=== PATIENT | female | born 1950 | race Caucasian/White ===

== ENCOUNTER 2020-09-10 13:24 | Emergency (ER) | payer MEDICARE, OTHER ==
--- NOTE | 2020-09-10 14:26 | ED Physician Documentation ---
History of Present Illness - Stated complaint Stated Complaint: SWOLLEN LEGS - Chief complaint Chief Complaint: General - History obtained from History obtained from: Patient - History of Present Illness Timing: How many weeks ago (several weeks) Pain level max: 8 Pain level now: 6 - Additonal information Additional information: 70-year-old female states that she has had swelling in her bilateral extremities for "years". She states that since she moved from [place] a few days ago the swelling seems to be worse. She states that her sister told her to come into the emergency department to ensure that she did not have "gangrene". Patient has no fevers. No chills. No redness in the legs. She states she does have a blister on her left great toe. She is unsure how long this has been there. Patient states she does not take any medications other than Ativan for sleep but she has been on for about 20 years. She states that she does not have a doctor here yet and she does not have any refills of her Ativan left. She states that she does drink alcohol daily "2-3 drinks and then may be some wine at night". Not on any hormone replacement. Review of Systems Ten Systems: 10 systems reviewed and negative Constitutional: denies: Fever, Chills Nose: denies: Rhinorrhea / runny nose, Congestion Cardiac: denies: Chest pain / pressure, Palpitations Respiratory: denies: Dyspnea, Cough GI: denies: Abdominal Pain, Vomiting, Diarrhea Skin: denies: Rash Musculoskeletal: denies: Neck pain, Back pain Neurologic: denies: Headache PD PAST MEDICAL HISTORY - Past Medical History Past Medical History: Yes Other Past Medical History: "insomnia" - Present Medications Home Medications: Ambulatory Orders Medication Instructions Recorded Confirmed Furosemide [Lasix] 20 mg PO DAILY #10 tablet 09/10/20 LORazepam [Ativan] 1.5 mg PO DAILY PM 09/10/20 09/10/20 cephALEXin [Keflex] 500 mg PO Q6H #40 cap 09/10/20 - Allergies Allergies/Adverse Reactions: Allergies Allergy/AdvReac Type Severity Reaction Status Date / Time No Known Drug Allergies Allergy Verified 09/10/20 13:40 - Living Situation Living Arrangement: reports: At home - Social History Does the pt smoke?: Yes Smoking Status: Current every day smoker Does the pt drink ETOH?: Yes ETOH Use: Wine, Liquor - Family History Family history: reports: Non contributory PD ED PE NORMAL - Vitals Vital signs reviewed: Yes - General General: Alert and oriented X 3, No acute distress - HEENT HEENT: Moist mucous membranes - Neck Neck: Supple, no meningeal sign - Cardiac Cardiac: RRR, Strong equal pulses - Respiratory Respiratory: No respiratory distress, Clear bilaterally - Abdomen Abdomen: Soft, Non tender, Non distended - Back Back: No spinal TTP - Derm Derm: Warm and dry - Extremities Extremities: Other (2+ BLE pitting edema. no drainage. small open blister with mild erythema to the medial aspect of the MTP. no drainage. ) - Neuro Neuro: Alert and oriented X 3 - Psych Psych: Normal mood, Normal affect Results - Vitals Vitals: Vital Signs - 24 hr 09/10/20 09/10/20 13:34 15:44 Temperature 36.4 C L Heart Rate 94 89 Respiratory 20 20 Rate Blood Pressure 160/102 H 164/100 H O2 Saturation 97 97 Oxygen O2 Source Room air - Labs Labs: Laboratory Tests 09/10/20 09/10/20 09/10/20 14:44 14:44 14:44 WBC 6.5 RBC 4.51 Hgb 15.6 Hct 48.0 H MCV 106.4 H MCH 34.6 H MCHC 32.5 RDW 14.6 Plt Count 240 MPV 10.8 Neut # (Auto) 4.5 Lymph # (Auto) 1.4 L [place] # (Auto) 0.6 Eos # (Auto) 0.0 Baso # (Auto) 0.0 Absolute Nucleated RBC 0.00 Nucleated RBC % 0.0 PT 11.5 INR 1.0 Sodium 139 Potassium 3.7 Chloride 101 Carbon Dioxide 28 Anion Gap 10.0 BUN 9 Creatinine 0.6 Estimated GFR (MDRD) 98 Glucose 86 Calcium 8.8 Total Bilirubin 0.8 AST 30 ALT 21 Alkaline Phosphatase 37 L B-Natriuretic Peptide Total Protein 7.2 Albumin 4.0 Globulin 3.2 Albumin/Globulin Ratio 1.3 Ethyl Alcohol 14.3 09/10/20 14:44 WBC RBC Hgb Hct MCV MCH MCHC RDW Plt Count MPV Neut # (Auto) Lymph # (Auto) [place] # (Auto) Eos # (Auto) Baso # (Auto) Absolute Nucleated RBC Nucleated RBC % PT INR Sodium Potassium Chloride Carbon Dioxide Anion Gap BUN Creatinine Estimated GFR (MDRD) Glucose Calcium Total Bilirubin AST ALT Alkaline Phosphatase B-Natriuretic Peptide 78 Total Protein Albumin Globulin Albumin/Globulin Ratio Ethyl Alcohol PD MEDICAL DECISION MAKING - ED course Complexity details: reviewed results, re-evaluated patient, considered differential, d/w patient ED course: No evidence of DVT. Appears to be peripheral edema. No evidence of significant renal or liver disease. We will place on Lasix. We will also place on Keflex for mild cellulitis. Recommend that she follow-up closely with her doctor to ensure healing of the wound on the left MTP of the great toe. Warnings of infection and instructions on wound care given at bedside. Also counseled on how to minimize scarring. Patient counseled regarding signs and symptoms for which I believe and urgent re-evaluation would be necessary. Patient with good understanding of and agreement to plan and is comfortable going home at this time This document was made in part using voice recognition software. While efforts are made to proofread this document, sound alike and grammatical errors may occur. Departure - Departure Disposition: 01 Home, Self Care Clinical Impression: Peripheral edema Cellulitis Qualifiers: Site of cellulitis: extremity Site of cellulitis of extremity: lower extremity Laterality: unspecified laterality Qualified Code(s): L03.119 - Cellulitis of unspecified part of limb Condition: Good Instructions: ED Infec Skin Cellulitis, ED Edema Legs Bilateral Follow-Up: [facility] [Provider Group] [facility] [Provider Group] [facility] [Provider Group] Cornelia Wagner MD [Provider Admit Priv/Credential] - Prescriptions: cephALEXin [Keflex] 500 mg PO Q6H #40 cap Furosemide [Lasix] 20 mg PO DAILY #10 tablet Comments: Take the Lasix as prescribed. Add the Keflex for any infection in your foot. Return if you worsen. Elevate your feet whenever possible. You need to follow- up with your primary care provider on the [place] as soon as possible. I have listed several of these for you today. Keep the wound clean. This document was made in part using voice recognition software. While efforts are made to proofread this document, sound alike and grammatical errors may occur. Discharge Date/Time: 09/10/20 16:08
[2020-09-10 15:01] LABS: BASOPHILS % (AUTO) 0.5 %; EOSINOPHILS % (AUTO) 0.5 %; HGB - HEMOGLOBIN 15.6 g/dL (12.0-16.0); LYMPHOCYTES # (AUTO) 1.4 10^3/uL (1.5-3.5); LYMPHOCYTES % (AUTO) 21.2 %; MEAN CORPUSCULAR HEMOGLOBIN 34.6 pg (27.0-31.0); MEAN CORPUSCULAR HGB CONC 32.5 g/dL (32.0-36.0); MEAN CORPUSCULAR VOLUME 106.4 fL (81.0-99.0); MEAN PLATELET VOLUME 10.8 fL (7.9-10.8); MONOCYTES # (AUTO) 0.6 10^3/uL (0.0-1.0); MONOCYTES % (AUTO) 8.5 %; NEUTROPHILS # (AUTO) 4.5 10^3/uL (1.5-6.6); NEUTROPHILS % (AUTO) 69.1 %; PLT - PLATELET COUNT 240 10^3/uL (130-450); RED BLOOD COUNT 4.51 10^6/uL (4.20-5.40); RED CELL DISTRIBUTION WIDTH 14.6 % (12.0-15.0); WHITE BLOOD COUNT 6.5 x10^3/uL (4.8-10.8)
[2020-09-10 15:06] LABS: PT - PROTHROMBIN TIME 11.5 secs (9.9-12.6)
[2020-09-10 15:14] LABS: ALBUMIN/GLOBULIN RATIO 1.3 (1.0-2.2); BILIRUBIN,TOTAL 0.8 mg/dL (0.2-1.0); CALCIUM 8.8 mg/dL (8.5-10.3); CREATININE 0.6 mg/dL (0.4-1.0); ETOH - ETHANOL 14.3 mg/dL; POTASSIUM 3.7 mmol/L (3.5-5.0); TOTAL PROTEIN 7.2 g/dL (6.7-8.2)
[2020-09-10] MEDS ORDERED: FUROSEMIDE 20 MG TABLET PO STA (15:16)
[2020-09-10] MEDS ORDERED: cephALEXin 250 MG CAPSULE PO STA (15:16)
[2020-09-10] MEDS ORDERED: FUROSEMIDE 40 MG TABLET PO STA (15:19)
[2020-09-10 15:45] VITALS: BP 164/100
== END 2020-09-10 16:08 | disposition home or self-care (01) ==
LOC: ED 13:24
DX: R60.0 Localized edema (principal); L03.116 Cellulitis of left lower limb; S90.422A Blister (nonthermal), left great toe, initial encounter; X58.XXXA Exposure to other specified factors, initial encounter; F17.200 Nicotine dependence, unspecified, uncomplicated
CPT/HCPCS: 80053; 83880; 85025; 85610; 99283; 99284; A9270; G0480; 80320

== ENCOUNTER 2021-01-11 14:23 | Outpatient (CLI) | payer MEDICARE, OTHER ==
--- NOTE | 2021-01-11 16:58 | Ultrasound Report ---
PROCEDURE: Duplex Ext Veins Bilateral INDICATIONS: ARIAS FLY TECHNIQUE: Real-time imaging, as well as color and pulse Doppler interrogation, were performed of the deep veins of both legs from the inguinal ligament to the popliteal fossa. COMPARISON: None FINDINGS: The deep veins are normally compressible, and free of intraluminal thrombus. Color and pu lse Doppler demonstrate normal phasic intravascular flow. There is normal augmentation response to d istal compression maneuver. IMPRESSION: Negative bilateral duplex lower extremity ultrasound for DVT. Reviewed by: Louis Rush MD on 01/11/2021 4:56 PM PDT Approved by: Louis Rush MD on 01/11/2021 4:56 PM PDT Station ID: [id number]
== END 2021-01-11 14:24 | disposition home or self-care (01) ==
LOC: DI 14:23
PROVIDERS: ATTEND Nurse Practitioner Family
DX: I87.2 Venous insufficiency (chronic) (peripheral) (principal)
CPT/HCPCS: 93970

== ENCOUNTER 2021-06-19 10:21 | Outpatient (CLI) | payer MEDICARE, OTHER ==
--- NOTE | 2021-06-19 16:26 | XRAY Report ---
PROCEDURE: Knee 3 View BILAT INDICATIONS: BILAT KNEE PAIN TECHNIQUE: 3 views of the bilateral knee(s) were acquired. COMPARISON: None. FINDINGS: Bones: No fractures or dislocations. No suspicious bony lesions. There is moderate bilateral media l as well as patellofemoral compartment narrowing. There is minimal lateral compartment narrowing freida aterally. Prominent periarticular osteophytes are present more severe on the left. No definitive eros ions. Soft tissues: Mild bilateral joint effusion. No suspicious soft tissue calcifications. IMPRESSION: Tricompartmental narrowing bilaterally slightly more prominent on the left as above cons istent with arthritis. Reviewed by: La Fuchs MD on 06/19/2021 4:25 PM PST Approved by: La Fuchs MD on 06/19/2021 4:25 PM [facility] Station ID: [id number]
== END 2021-06-19 10:22 | disposition home or self-care (01) ==
LOC: DI.S 10:21
PROVIDERS: ATTEND Nurse Practitioner Family
DX: M17.0 Bilateral primary osteoarthritis of knee (principal)